=== PATIENT | male | born 1980 | race Caucasian/White ===

== ENCOUNTER 2020-10-15 02:43 | Inpatient (IN) ==
[2020-10-15 05:17] LABS: Basophils # 0.1 K/mcL (0.0-0.2); Basophils % 0.5 %; Eosinophils # 0.8 K/mcL (0.0-0.6); Eosinophils % 7.4 %; Hematocrit 43.5 % (37.5-50.1); Hemoglobin 14.8 g/dL (12.9-16.9); Immature Granulocytes % 0.3 % (0-4); Lymphocytes # 2.2 K/mcL (0.6-4.6); Lymphocytes % 21.6 %; Mean Corpuscular Hemoglobin 31.6 pg (28.0-33.3); Mean Corpuscular Volume 92.8 fL (83.0-100.0); Mean Platelet Volume 9.7 fL (9.4-12.4); Monocytes # 0.9 K/mcL (0.0-1.3); Monocytes % 8.9 %; Neutrophils # 6.3 K/mcL (1.6-8.9); Platelet Count 218 K/mcL (140-400); Red Blood Count 4.69 M/mcL (4.19-5.50); Red Cell Distribution Width 13.2 % (11.5-14.5); Segmented Neutrophils % 61.3 %; White Blood Count 10.4 K/mcL (4.3-11.1)
[2020-10-15 05:38] LABS: BUN/Creatinine Ratio 22 (6-26); Blood Urea Nitrogen 16 mg/dL (6-20); Chloride 104 mEq/L (98-107); Ethanol < 10 mg/dL (Less than 10); Glucose 99 mg/dL (70-105); Osmolality,Calculated 285 (280-300); Potassium 3.6 mEq/L (3.5-5.1); Sodium 137 mEq/L (136-145); eGFR For African Americans > 60 (> 60); eGFR For Non-African Americans > 60 (> 60)
[2020-10-15 06:08] LABS: Carbon Dioxide 24 mEq/L (23-29)
[2020-10-15 06:49] LABS: Amphetamine Screen,Urine Negative ng/mL (Cutoff=1000); Barbiturate Screen,Urine Negative ng/mL (Cutoff=200); Benzodiazepines Screen,Urine Negative ng/mL (Cutoff=300); Cannabinoid Screen,Urine Positive ng/mL (Cutoff = 50); Cocaine Screen,Urine Negative ng/mL (Cutoff= 300)
[2020-10-15 06:50] LABS: Opiate Screen,Urine Negative ng/mL (Cutoff=300); Phencyclidine Screen,Urine Negative ng/mL (Cutoff=25)
[2020-10-15] MEDS ORDERED: Tdap (Boostrix) Vaccine 0.5 ML SYRINGE IM ONE (07:05)
[2020-10-15] MEDS ORDERED: Haloperidol Oral Conc 10 MG/5 ML UDC PO ONE (16:52)
[2020-10-15] MEDS ORDERED: haloperidoL 5 MG TABLET PO STA (17:45)
[2020-10-15 21:24] LABS: Influenza A PCR Negative (Negative); Influenza B PCR Negative (Negative); Resp. Syncytial Virus PCR Negative (Negative)
[2020-10-15 21:25] LABS: SARS-CoV-2 by PCR (In House) Negative (Negative)
[2020-10-15] MEDS ORDERED: haloperidoL 5 MG TABLET PO PRN (21:58)
[2020-10-15] MEDS ORDERED: Ibuprofen 400 MG TABLET PO PRN (21:58)
[2020-10-15] MEDS ORDERED: Haloperidol Lactate 5 MG/ML VIAL IM PRN (21:58)
[2020-10-15] MEDS ORDERED: *HR* LORazepam 2 MG/ML VIAL IM PRN (21:58)
[2020-10-15] MEDS ORDERED: *HR* LORazepam 1 MG TABLET PO PRN (21:58)
[2020-10-15] MEDS: hydrOXYzine pamoate 25 MG CAPSULE PO PRN (23:00)
[2020-10-15] MEDS: QUEtiapine Fumarate 25 MG TABLET PO PRN (23:00)
[2020-10-16] MEDS ORDERED: MOM Conc 10 ML UD.LIQ PO PRN (09:07)
[2020-10-16] MEDS ORDERED: Mag Hydrox/Al Hydrox/Simeth 30 ML UDC PO PRN (09:07)
[2020-10-16] MEDS: Nicotine 21 MG PATCH.TD24 TD SCH (09:59)
[2020-10-16] MEDS: risperiDONE 0.25 MG TABLET PO SCH (21:18)
[2020-10-17] MEDS: Nicotine 21 MG PATCH.TD24 TD SCH (09:19)
[2020-10-17] MEDS: risperiDONE 0.25 MG TABLET PO SCH ×2 (09:19→21:49)
[2020-10-17] MEDS: hydrOXYzine pamoate 25 MG CAPSULE PO PRN (21:49)
[2020-10-17] MEDS: QUEtiapine Fumarate 25 MG TABLET PO PRN (21:49)
[2020-10-18] MEDS: Nicotine 21 MG PATCH.TD24 TD SCH (09:48)
[2020-10-18] MEDS: risperiDONE 0.25 MG TABLET PO SCH (09:48)
[2020-10-18] MEDS: risperiDONE 1 MG TABLET PO SCH (20:41)
[2020-10-18] MEDS: QUEtiapine Fumarate 25 MG TABLET PO PRN (20:43)
[2020-10-18] MEDS: hydrOXYzine pamoate 25 MG CAPSULE PO PRN (20:43)
[2020-10-19] MEDS: Nicotine 21 MG PATCH.TD24 TD SCH (10:09)
[2020-10-19] MEDS: risperiDONE 0.25 MG TABLET PO SCH (10:10)
[2020-10-19] MEDS: hydrOXYzine pamoate 25 MG CAPSULE PO PRN (16:18)
[2020-10-19] MEDS: Thiamine (B-1) 100 MG TABLET PO SCH (17:13)
[2020-10-19] MEDS: Multivit/Ca/Min/Fe/FA 1 TAB TABLET PO SCH (17:14)
[2020-10-19] MEDS: QUEtiapine Fumarate 25 MG TABLET PO PRN (20:35)
[2020-10-19] MEDS: risperiDONE 1 MG TABLET PO SCH (20:35)
[2020-10-20] MEDS: risperiDONE 0.25 MG TABLET PO SCH (09:25)
[2020-10-20] MEDS: Thiamine (B-1) 100 MG TABLET PO SCH (09:25)
[2020-10-20] MEDS: Multivit/Ca/Min/Fe/FA 1 TAB TABLET PO SCH (09:25)
[2020-10-20] MEDS: Nicotine 21 MG PATCH.TD24 TD SCH (09:25)
[2020-10-20] MEDS: hydrOXYzine pamoate 25 MG CAPSULE PO PRN (20:38)
[2020-10-20] MEDS: QUEtiapine Fumarate 25 MG TABLET PO PRN (20:38)
[2020-10-20] MEDS: risperiDONE 1 MG TABLET PO SCH (20:38)
[2020-10-21] MEDS: Nicotine 21 MG PATCH.TD24 TD SCH (09:32)
[2020-10-21] MEDS: Multivit/Ca/Min/Fe/FA 1 TAB TABLET PO SCH (09:33)
[2020-10-21] MEDS: Thiamine (B-1) 100 MG TABLET PO SCH (09:33)
[2020-10-21] MEDS: risperiDONE 0.25 MG TABLET PO SCH (09:33)
[2020-10-21] MEDS: risperiDONE 1 MG TABLET PO SCH (20:24)
[2020-10-22 08:36] VITALS: BP 100/67
[2020-10-22] MEDS: Nicotine 21 MG PATCH.TD24 TD SCH (09:25)
[2020-10-22] MEDS: Multivit/Ca/Min/Fe/FA 1 TAB TABLET PO SCH (09:25)
[2020-10-22] MEDS: Thiamine (B-1) 100 MG TABLET PO SCH (09:26)
[2020-10-22] MEDS: risperiDONE 0.25 MG TABLET PO SCH (09:26)
== END 2020-10-22 16:55 | disposition home or self-care (01) | DRG 885 ==
LOC: EMEROOARM 02:43 → 1ANU 21:55
PROVIDERS: ADMIT Psychiatry & Neurology Psychiatry; ATTEND Psychiatry & Neurology Psychiatry